=== PATIENT | female | born 1970 | race Caucasian/White ===

== ENCOUNTER 2020-12-21 07:16 | Emergency (ER) | payer OTHER ==
[~2020-12-21 07:16] MED LIST: NORCO 5-325 TA1 EACH PO
[2020-12-21 09:19] LABS: BASOPHIL 0.7 % (0-2); EOSINOPHIL 2.8 % (0-5); HCT 40.2 % (37.0-47.0); LYMPHOCYTE 26.6 % (15-48); MCH 29.6 pg (25.0-31.0); MCHC 32.3 g/dL (32.0-36.0); MCV 91.6 fL (78.0-100.0); MONOCYTE 6.5 % (0-12); MPV 9.8 fL (6.0-9.5); NEUTROPHIL 63.1 % (41-80); NRBC 0; PLT 275 K/uL (150-400); RBC 4.39 M/uL (4.20-5.40); RDW 14.1 % (11.5-14.0); WBC 9.2 K/uL (4.0-10.5)
== END 2020-12-21 09:54 | disposition home or self-care (01) ==
LOC: FER 07:16
PROVIDERS: Emergency Medicine
DX: N94.6 Dysmenorrhea, unspecified (principal); N83.202 Unspecified ovarian cyst, left side; Z90.721 Acquired absence of ovaries, unilateral
CPT/HCPCS: 36415; 76856; 85025